=== PATIENT | female | born 1950 | race African-American/Black ===

== ENCOUNTER → 2018-08-20 | Day surgery (SDC) | payer OTHER ==
--- NOTE | 2018-08-20 11:58 | OP ---
DATE OF OPERATION: 08/20/2018 PREOPERATIVE DIAGNOSIS: Abnormal right mammography. POSTOPERATIVE DIAGNOSIS: Abnormal right mammography. PROCEDURE: Right stereotactic needle biopsy with clips. SURGEON: Carroll Sam MD ANESTHESIA: Local. ESTIMATED BLOOD LOSS: Minimal. COMPLICATIONS: None. This was a sterile procedure. INDICATIONS FOR PROCEDURE: Patient had a screening mammography that noted a new cluster of microcalcifications in the upper inner right breast. My recommendation was a needle biopsy. The procedure was discussed with all her questions answered. PROCEDURE IN DETAIL: Patient was brought to [facility]. Deirdre Carter, laid prone on the OR table. Using the cranial approach, the calcifications in the upper inner right breast were identified. A sterile prep was obtained. A target was chosen, there was a positive stroke margin. Using betadine and 1% lidocaine, a 10-gauge [place] device was used to take several cores from this area. Cores showed calcifications within them. These were handled using the usual calcification protocol. A clip was deployed in the area. Hemostasis was ensured with direct pressure. Steri-Strips were used to close the incision. She tolerated the procedure well and left the breast imaging center in good condition. CARROLL SAM M.D. [id number]
--- NOTE | 2018-08-22 11:02 | PATH ---
Surgical Pathology Report Patient Name: MAMTA PERRIN [facility]. Rec. #: [id number] /Age/Gender: 1950 (Age: 68) / F Account: [id number] Location: [facility] Taken: 08/20/2018 Received: 08/20/2018 Reported: 08/22/2018 Physicians: Viktoriya Castrejon M.D. Specimen(s) Received A: RIGHT BREAST SPECIMEN WITH CALCIFICATIONS B: RIGHT BREAST SPECIMEN WITHOUT CALCIFICATIONS Clinical History Mammographic findings: Suspicious microcalcification h/o right breast lumpectomy for breast cancer 17 years ago Final Diagnosis A. BREAST, RIGHT, WITH CALCIFICATIONS, STEREOTACTIC BIOPSY: BENIGN BREAST TISSUE SHOWING SCLEROSED FIBROADENOMA WITH ASSOCIATED COARSE STROMAL CALCIFICATIONS. B. BREAST, RIGHT, WITHOUT CALCIFICATIONS, STEREOTACTIC BIOPSY: BENIGN BREAST TISSUE. Electronically Signed Fallon Thayer M.D. Gross Description A. Received in formalin, labeled "right breast with calcifications" are five cores of light dhillon and yellow-dhillon tissue ranging from 2.4-2.8 cm in length with a diameter up to 0.3 cm. Entirely submitted in two cassettes. B. Received in formalin, labeled "right breast without calcifications" are two cores of light dhillon and yellow-dhillon tissue measuring 2.2 cm and 2.4 cm in length with a diameter of up to 0.4 cm. Entirely submitted in one cassette. Time to formalin fixation: 7 minutes Total formalin fixation time: Approximately 9 hours ebram/08/20/2018
== END | disposition home or self-care (01) ==
LOC: FMAMMOTONE 08:50
PROVIDERS: ATTEND Surgery
PROC: 0HBT3ZX Excision of Right Breast, Percutaneous Approach, Diagnostic (ICD-10-PCS; principal; 2018-08-20)
DX: D24.1 Benign neoplasm of right breast (principal); N64.89 Other specified disorders of breast; R92.8 Other abnormal and inconclusive findings on diagnostic imaging of breast
CPT/HCPCS: 19081; 87899; 88305-TC; A4648